=== PATIENT | male | born 1950 | race Caucasian/White ===

== ENCOUNTER 2020-12-18 10:31 | Outpatient (CLI) | payer OTHER ==
[2020-12-18 17:49] LABS: SARS-CoV-2 PCR by NAA Not Detected (NotDetected)
== END 2020-12-18 10:32 | disposition home or self-care (01) ==
LOC: CSHLAB 10:31
PROVIDERS: ATTEND Internal Medicine Gastroenterology
DX: Z20.822 Contact with and (suspected) exposure to COVID-19 (principal); I85.00 Esophageal varices without bleeding; Z12.11 Encounter for screening for malignant neoplasm of colon
CPT/HCPCS: 87635; U0003; U0005

== ENCOUNTER 2020-12-23 06:30 | Day surgery (SDC) | payer OTHER ==
[2020-12-21 14:55] VITALS: BMI 27.3
[2020-12-23] MEDS ORDERED: cefTRIAXone\\ROCEPHIN 1 GM VIAL ONE (08:03)
[2020-12-23] MEDS ORDERED: Sodium Chloride 0.9% 100 ML ONE ×2 (08:03→08:05)
[2020-12-23] MEDS ORDERED: Metoprolol Tartrate 5 MG/5 ML VIAL ONE (08:47)
[2020-12-23] MEDS ORDERED: Ketamine 50 MG/ML (10ML VIAL) ONE (09:06)
[2020-12-23] MEDS ORDERED: PROPOFOL 60 ML ONE (09:09)
[2020-12-23] MEDS ORDERED: PHENYLEPHRINE-NS 100 MCG/ML 10 ML SYRINGE ONE (09:26)
[2020-12-23] MEDS ORDERED: PROPOFOL 20 ML ONE (09:48)
[2020-12-23] MEDS ORDERED: Lidocaine 1% PF 5 ML VIAL ONE (10:14)
== END 2020-12-23 11:05 | disposition home or self-care (01) ==
LOC: CSHSDC 06:30
PROVIDERS: ATTEND Internal Medicine Gastroenterology
DX: Z12.11 Encounter for screening for malignant neoplasm of colon (principal); I85.00 Esophageal varices without bleeding; D12.5 Benign neoplasm of sigmoid colon; K29.30 Chronic superficial gastritis without bleeding; K44.9 Diaphragmatic hernia without obstruction or gangrene; K76.6 Portal hypertension; K31.89 Other diseases of stomach and duodenum; K26.9 Duodenal ulcer, unspecified as acute or chronic, without hemorrhage or perforation; K64.9 Unspecified hemorrhoids; K57.30 Diverticulosis of large intestine without perforation or abscess without bleeding; K70.30 Alcoholic cirrhosis of liver without ascites; I10 Essential (primary) hypertension; E78.5 Hyperlipidemia, unspecified; I48.91 Unspecified atrial fibrillation
CPT/HCPCS: 88305; J0696; J2704; J3490

== ENCOUNTER 2021-07-15 12:09 | Day surgery (SDC) | payer OTHER ==
[2021-07-15 12:38] VITALS: BP 117/73; TEMP 97.8
[2021-07-15] MEDS ORDERED: Sodium Bicarbonate 2.5 MEQ/5 ML VIAL ONE (12:45)
[2021-07-15] MEDS ORDERED: Lidocaine 1% PF 5 ML VIAL ONE (12:57)
== END 2021-07-15 13:30 | disposition home or self-care (01) ==
LOC: CSHULT 12:09
PROVIDERS: ATTEND Internal Medicine Gastroenterology
DX: R18.8 Other ascites (principal)
CPT/HCPCS: 49083

== ENCOUNTER 2021-08-11 10:16 | Day surgery (SDC) | payer OTHER ==
[2021-08-11] MEDS ORDERED: Lidocaine 1% PF 5 ML VIAL ONE ×2 (10:37→11:38)
[2021-08-11] MEDS ORDERED: Albumin 25% 100 ML ONE (10:37)
[2021-08-11] MEDS ORDERED: Sodium Bicarbonate 2.5 MEQ/5 ML VIAL ONE (10:38)
[2021-08-11 11:14] LABS: INR-International Normal Ratio 1.4; PTT 28.1 sec (22.0-33.0); Prothrombin Time 15.4 sec (9.5-12.1)
== END 2021-08-11 12:35 | disposition home or self-care (01) ==
LOC: CSHULT 10:16
PROVIDERS: ATTEND Internal Medicine Gastroenterology
DX: K70.31 Alcoholic cirrhosis of liver with ascites (principal)
CPT/HCPCS: 49083; 85610; 85730; P9047

== ENCOUNTER 2021-09-15 10:34 | Day surgery (SDC) | payer OTHER ==
[2021-09-15 11:55] LABS: #Eosinphils 0.2 10x3/uL (0.0-0.5); #Neutrophils 4.1 10x3/uL (1.5-8.4); %Basophils 0.6 % (0.0-2.0); %Eosinophils 2.5 % (0.0-6.0); %Lymphocytes 22.1 % (18.0-47.0); %Monocytes 14.4 % (0.0-10.0); %Neutrophils 60.1 % (40.0-75.0); Hemoglobin 13.3 g/dL (13.5-17.5); Mean Corpuscular Hemoglobin 34.2 pg (27.0-33.0); Mean Corpuscular Volume 100.5 fl (81.2-95.1); Mean Platelet Volume 10.8 fl (7.4-10.4); Platelet Count 232 10x3/uL (150-450); RBC Distribution Width 13.2 % (11.5-14.5); Red Blood Cell (RBC) Count 3.89 10x6/uL (4.32-5.72); White Blood Cell (WBC) Count 6.8 10x3/uL (3.5-10.5)
[2021-09-15 11:59] VITALS: BP 137/63; TEMP 97.9
[2021-09-15 12:01] LABS: INR-International Normal Ratio 1.3; PTT 27.7 sec (22.0-33.0)
[2021-09-15] MEDS ORDERED: Albumin 25% 100 ML ONE (12:04)
[2021-09-15] MEDS ORDERED: Lidocaine 1% PF 5 ML VIAL ONE (12:04)
[2021-09-15] MEDS ORDERED: Sodium Bicarbonate 2.5 MEQ/5 ML VIAL ONE (12:05)
[2021-09-15] MEDS ORDERED: FLU VACC QS2021-22(65YR UP)/PF 240 MCG/0.7 ML SYRINGE IM ONE (12:15)
== END 2021-09-15 13:35 | disposition home or self-care (01) ==
LOC: CSHULT 10:34
PROVIDERS: ATTEND Internal Medicine Gastroenterology
DX: R18.8 Other ascites (principal)
CPT/HCPCS: 49083; 85025; 85610; 85730; P9047

== ENCOUNTER 2021-10-06 09:02 | Day surgery (SDC) | payer OTHER ==
[2021-10-06] MEDS ORDERED: Albumin 25% 100 ML ONE (09:50)
[2021-10-06] MEDS ORDERED: Sodium Bicarbonate 2.5 MEQ/5 ML VIAL ONE (09:51)
[2021-10-06] MEDS ORDERED: Lidocaine 1% PF 5 ML VIAL ONE (09:51)
[2021-10-06 09:58] LABS: Hemoglobin 12.8 g/dL (13.5-17.5); Mean Corpuscular HGB CONC 33.6 g/dL (32.0-36.0); Mean Corpuscular Hemoglobin 33.2 pg (27.0-33.0); Mean Corpuscular Volume 98.7 fl (81.2-95.1); Mean Platelet Volume 11.1 fl (7.4-10.4); Platelet Count 197 10x3/uL (150-450); RBC Distribution Width 14.1 % (11.5-14.5); Red Blood Cell (RBC) Count 3.86 10x6/uL (4.32-5.72); White Blood Cell (WBC) Count 6.2 10x3/uL (3.5-10.5)
[2021-10-06 09:59] LABS: MDiff Complete? YES
[2021-10-06 10:13] VITALS: BP 98/59; TEMP 98.2
[2021-10-06 10:18] LABS: Band 2 % (5-11); Eosinophils 10 % (0-10); Lymphocytes 18 % (21-51); Monocytes 9 % (0-10); Neutrophil 61 % (42-75)
[2021-10-06 10:20] LABS: Platelet Morphology Comment Appears Adequate
[2021-10-06 10:21] LABS: RBC Morphology Normal
[2021-10-06 11:12] LABS: INR-International Normal Ratio 1.3; PTT 29.1 sec (22.0-33.0); Prothrombin Time 13.9 sec (9.5-12.1)
== END 2021-10-06 11:05 | disposition home or self-care (01) ==
LOC: CSHULT 09:02
PROVIDERS: ATTEND Internal Medicine Gastroenterology
DX: R18.8 Other ascites (principal)
CPT/HCPCS: 49083; 85025; 85610; 85730; P9047

== ENCOUNTER 2021-10-26 11:56 | Day surgery (SDC) | payer OTHER ==
[2021-10-26] MEDS ORDERED: Albumin 25% 100 ML ONE (12:14)
[2021-10-26] MEDS ORDERED: Lidocaine 1% PF 5 ML VIAL ONE (12:15)
[2021-10-26] MEDS ORDERED: Sodium Bicarbonate 2.5 MEQ/5 ML VIAL ONE (12:15)
[2021-10-26 13:02] VITALS: BP 117/69; TEMP 98
== END 2021-10-26 14:20 | disposition home or self-care (01) ==
LOC: CSHULT 11:56
PROVIDERS: ATTEND Internal Medicine Gastroenterology
DX: R18.8 Other ascites (principal)
CPT/HCPCS: 49083; P9047

== ENCOUNTER 2021-11-03 09:06 | Outpatient (CLI) | payer OTHER ==
[2021-11-03 10:23] LABS: Estimated GFR-MDRD - POC Greater than 90
== END 2021-11-03 09:07 | disposition home or self-care (01) ==
LOC: CSHCT 09:06
PROVIDERS: ATTEND Internal Medicine Gastroenterology
DX: R16.0 Hepatomegaly, not elsewhere classified (principal); K76.6 Portal hypertension; I86.4 Gastric varices; R18.8 Other ascites; I87.8 Other specified disorders of veins
CPT/HCPCS: 74160; 82565

== ENCOUNTER 2021-12-28 12:08 | Day surgery (SDC) | payer OTHER ==
[2021-12-28] MEDS ORDERED: Sodium Bicarbonate 2.5 MEQ/5 ML VIAL ONE (12:55)
[2021-12-28] MEDS ORDERED: Lidocaine 1% PF 5 ML VIAL ONE (12:55)
[2021-12-28] MEDS ORDERED: Albumin 25% 100 ML ONE (12:55)
[2021-12-28 13:15] LABS: #Eosinphils 0.1 10x3/uL (0.0-0.5); #Monocytes 0.8 10x3/uL (0.0-1.1); #Neutrophils 3.1 10x3/uL (1.5-8.4); %Basophils 0.6 % (0.0-2.0); %Eosinophils 2.7 % (0.0-6.0); %Lymphocytes 22.6 % (18.0-47.0); %Monocytes 14.2 % (0.0-10.0); %Neutrophils 59.5 % (40.0-75.0); Hemoglobin 13.2 g/dL (13.5-17.5); Mean Corpuscular HGB CONC 33.2 g/dL (32.0-36.0); Mean Corpuscular Hemoglobin 33.4 pg (27.0-33.0); Mean Corpuscular Volume 100.5 fl (81.2-95.1); Mean Platelet Volume 10.9 fl (7.4-10.4); Platelet Count 141 10x3/uL (150-450); RBC Distribution Width 13.5 % (11.5-14.5); Red Blood Cell (RBC) Count 3.95 10x6/uL (4.32-5.72); White Blood Cell (WBC) Count 5.3 10x3/uL (3.5-10.5)
[2021-12-28 13:18] LABS: INR-International Normal Ratio 1.3; PTT 29.2 sec (22.0-33.0); Prothrombin Time 13.8 sec (9.5-12.1)
[2021-12-28 14:55] VITALS: TEMP 98
== END 2021-12-28 14:00 | disposition home or self-care (01) ==
LOC: CSHULT 12:08
PROVIDERS: ATTEND Internal Medicine Gastroenterology
DX: R18.8 Other ascites (principal)
CPT/HCPCS: 49083; 85025; 85610; 85730; P9047

== ENCOUNTER 2022-01-21 10:02 | Day surgery (SDC) | payer OTHER ==
[2022-01-21] MEDS ORDERED: Lidocaine 1% PF 5 ML VIAL ONE (10:29)
[2022-01-21] MEDS ORDERED: Albumin 25% 100 ML ONE (10:29)
[2022-01-21] MEDS ORDERED: Sodium Bicarbonate 2.5 MEQ/5 ML VIAL ONE (10:29)
[2022-01-21 13:38] VITALS: TEMP 97.3
[2022-01-21 13:44] VITALS: BP 112/66
== END 2022-01-21 11:50 | disposition home or self-care (01) ==
LOC: CSHULT 10:02
PROVIDERS: ATTEND Internal Medicine Gastroenterology
DX: R18.8 Other ascites (principal); K74.60 Unspecified cirrhosis of liver
CPT/HCPCS: 49083; P9047

== ENCOUNTER → 2022-02-11 | Day surgery (SDC) | payer OTHER ==
[~2022-02-11] MED LIST: Albumin 25% 100 ML ONE; Lidocaine 1% PF 5 ML VIAL ONE; Sodium Bicarbonate 2.5 MEQ/5 ML VIAL ONE
[2022-02-11 11:45] VITALS: BP 112/59; TEMP 98.4
[2022-02-11 12:32] LABS: INR-International Normal Ratio 1.4; PTT 30.3 sec (22.0-33.0); Prothrombin Time 15.1 sec (9.5-12.1)
[2022-02-11 12:33] LABS: Anion Gap 15 mmol/L (10-20); BUN (Urea Nitrogen) 9 mg/dL (8.4-25.7); Calc. Creatinine Clearance 122 mL/min (70-130); Calcium 8.8 mg/dL (7.8-10.44); Carbon Dioxide 24 mmol/L (23-31); Chloride 97 mmol/L (98-107); Glucose 85 mg/dL (80-115); Potassium 3.3 mmol/L (3.5-5.1); Sodium 133 mmol/L (136-145)
[2022-02-11 12:52] LABS: #Eosinphils 0.1 10x3/uL (0.0-0.5); #Monocytes 0.9 10x3/uL (0.0-1.1); #Neutrophils 2.7 10x3/uL (1.5-8.4); %Basophils 0.6 % (0.0-2.0); %Eosinophils 2.9 % (0.0-6.0); %Lymphocytes 22.8 % (18.0-47.0); %Monocytes 17.8 % (0.0-10.0); %Neutrophils 55.7 % (40.0-75.0); Hemoglobin 13.5 g/dL (13.5-17.5); Mean Corpuscular HGB CONC 35.2 g/dL (32.0-36.0); Mean Corpuscular Hemoglobin 34.9 pg (27.0-33.0); Mean Corpuscular Volume 99.2 fl (81.2-95.1); Mean Platelet Volume 11.2 fl (7.4-10.4); Platelet Count 91 10x3/uL (150-450); Red Blood Cell (RBC) Count 3.87 10x6/uL (4.32-5.72); White Blood Cell (WBC) Count 4.8 10x3/uL (3.5-10.5)
[2022-02-11 13:59] LABS: Band 2 % (5-11); Lymphocytes 16 % (21-51)
[2022-02-11 14:00] LABS: Eosinophils 2 % (0-10); Monocytes 8 % (0-10)
[2022-02-11 14:01] LABS: Anisocytosis SLIGHT = 6-15 cells (100X) (0-5/hpf); Hypochromia SLIGHT = 6-15 cells (100X) (0-5/hpf); Neutrophil 72 % (42-75); Platelet Morphology Comment Appears Decreased; Polychromasia SLIGHT = 2-3 cells (100X) (0-2/hpf)
[2022-02-11 14:02] LABS: MDiff Complete? YES
== END ==
LOC: CSHULT 09:47
PROVIDERS: ATTEND Internal Medicine Gastroenterology
DX: R18.8 Other ascites (principal)
CPT/HCPCS: 49083; 80048; 85025; 85610; 85730; P9047

== ENCOUNTER 2022-03-04 09:57 | Day surgery (SDC) | payer OTHER ==
[2022-03-04] MEDS ORDERED: Albumin 25% 100 ML ONE (10:14)
[2022-03-04] MEDS ORDERED: Lidocaine 1% PF 5 ML VIAL ONE (10:14)
[2022-03-04] MEDS ORDERED: Sodium Bicarbonate 2.5 MEQ/5 ML VIAL ONE (10:14)
[2022-03-04 11:04] VITALS: BP 118/63; TEMP 98.2
== END 2022-03-04 11:35 | disposition home or self-care (01) ==
LOC: CSHULT 09:57
PROVIDERS: ATTEND Internal Medicine Gastroenterology
PROC: BW40ZZZ Ultrasonography of Abdomen (ICD-10-PCS; principal; 2022-03-04)
PROC: 0W9G3ZZ Drainage of Peritoneal Cavity, Percutaneous Approach (ICD-10-PCS; principal; 2022-03-04)
DX: R18.8 Other ascites (principal); Z88.6 Allergy status to analgesic agent
CPT/HCPCS: 49083; P9047

== ENCOUNTER 2022-03-25 10:10 | Day surgery (SDC) | payer OTHER ==
[2022-03-25] MEDS ORDERED: Albumin 25% 100 ML ONE (10:27)
[2022-03-25] MEDS ORDERED: Lidocaine 1% PF 5 ML VIAL ONE (10:28)
[2022-03-25] MEDS ORDERED: Sodium Bicarbonate 2.5 MEQ/5 ML VIAL ONE (10:28)
[2022-03-25 10:40] VITALS: BP 136/82; TEMP 98.2
[2022-03-25 10:46] LABS: Hemoglobin 14.1 g/dL (13.5-17.5); Mean Corpuscular HGB CONC 34.9 g/dL (32.0-36.0); Mean Corpuscular Hemoglobin 35.3 pg (27.0-33.0); Mean Platelet Volume 10.4 fl (7.4-10.4); Platelet Count 146 10x3/uL (150-450); RBC Distribution Width 14.4 % (11.5-14.5); White Blood Cell (WBC) Count 6.2 10x3/uL (3.5-10.5)
[2022-03-25 10:47] LABS: INR-International Normal Ratio 1.3; Prothrombin Time 13.9 sec (9.5-12.1)
== END 2022-03-25 11:48 | disposition home or self-care (01) ==
LOC: CSHULT 10:10
PROVIDERS: ATTEND Internal Medicine Gastroenterology
PROC: 0W9G3ZZ Drainage of Peritoneal Cavity, Percutaneous Approach (ICD-10-PCS; principal; 2022-03-25)
DX: R18.8 Other ascites (principal)
CPT/HCPCS: 49083; 85027; 85610; P9047

== ENCOUNTER → 2022-04-15 | Day surgery (SDC) | payer OTHER ==
[2022-04-15 11:23] VITALS: BP 106/63; TEMP 98.4
[2022-04-15 11:58] LABS: INR-International Normal Ratio 1.4; Prothrombin Time 14.9 sec (9.5-12.1)
[2022-04-15 11:59] LABS: Hemoglobin 14.3 g/dL (13.5-17.5); Mean Corpuscular HGB CONC 34.9 g/dL (32.0-36.0); Mean Corpuscular Hemoglobin 35.3 pg (27.0-33.0); Mean Corpuscular Volume 101.2 fl (81.2-95.1); RBC Distribution Width 14.6 % (11.5-14.5); Red Blood Cell (RBC) Count 4.05 10x6/uL (4.32-5.72)
[2022-04-15 12:00] LABS: Platelet Count 128 10x3/uL (150-450)
== END ==
LOC: CSHULT 10:19
PROVIDERS: ATTEND Internal Medicine Gastroenterology
PROC: 0W9G3ZZ Drainage of Peritoneal Cavity, Percutaneous Approach (ICD-10-PCS; principal; 2022-04-15)
DX: R18.8 Other ascites (principal)
CPT/HCPCS: 49083; 85027; 85610; P9047

== ENCOUNTER 2022-05-06 10:14 | Day surgery (SDC) | payer OTHER ==
[2022-04-29 12:11] VITALS: BMI 28.1
[2022-05-06] MEDS ORDERED: Sodium Bicarbonate 2.5 MEQ/5 ML VIAL ONE (10:36)
[2022-05-06] MEDS ORDERED: Albumin 25% 100 ML ONE (10:36)
[2022-05-06 12:53] VITALS: BP 120/73; TEMP 98.4
== END 2022-05-06 12:05 | disposition home or self-care (01) ==
LOC: CSHULT 10:14
PROVIDERS: ATTEND Internal Medicine Gastroenterology
PROC: 0W9G3ZZ Drainage of Peritoneal Cavity, Percutaneous Approach (ICD-10-PCS; principal; 2022-05-06)
DX: R18.8 Other ascites (principal); Z79.899 Other long term (current) drug therapy; Z88.8 Allergy status to other drugs, medicaments and biological substances
CPT/HCPCS: 49083; P9047

== ENCOUNTER 2022-06-10 09:38 | Day surgery (SDC) | payer OTHER ==
[2022-06-10] MEDS ORDERED: Albumin 25% 100 ML ONE (10:03)
[2022-06-10] MEDS ORDERED: Sodium Bicarbonate 2.5 MEQ/5 ML VIAL ONE (10:03)
[2022-06-10 10:19] VITALS: BP 104/68; TEMP 97.6
== END 2022-06-10 11:35 | disposition home or self-care (01) ==
LOC: CSHULT 09:38
PROVIDERS: ATTEND Internal Medicine Gastroenterology
PROC: 0W9G3ZZ Drainage of Peritoneal Cavity, Percutaneous Approach (ICD-10-PCS; principal; 2022-06-10)
DX: R18.8 Other ascites (principal)
CPT/HCPCS: 49083; C1760; P9047

== ENCOUNTER 2022-06-24 09:50 | Day surgery (SDC) | payer OTHER ==
[2022-06-24] MEDS ORDERED: Lidocaine 1% PF 5 ML VIAL ONE (10:15)
[2022-06-24] MEDS ORDERED: Sodium Bicarbonate 2.5 MEQ/5 ML VIAL ONE (10:15)
== END 2022-06-24 11:35 | disposition home or self-care (01) ==
LOC: CSHULT 09:50
PROVIDERS: ATTEND Internal Medicine Gastroenterology
PROC: 0W9G30Z Drainage of Peritoneal Cavity with Drainage Device, Percutaneous Approach (ICD-10-PCS; principal; 2022-06-24)
DX: R18.8 Other ascites (principal)
CPT/HCPCS: 49083

== ENCOUNTER 2022-07-08 09:39 | Day surgery (SDC) | payer OTHER ==
[2022-07-08] MEDS ORDERED: Albumin 25% 100 ML ONE (09:58)
[2022-07-08] MEDS ORDERED: Lidocaine 1% PF 5 ML VIAL ONE (09:59)
[2022-07-08] MEDS ORDERED: Sodium Bicarbonate 2.5 MEQ/5 ML VIAL ONE (09:59)
[2022-07-08 11:14] LABS: INR-International Normal Ratio 1.2; PTT 31.5 sec (22.0-33.0); Prothrombin Time 13.4 sec (9.5-12.1)
[2022-07-08 11:15] LABS: Hemoglobin 12.3 g/dL (13.5-17.5); Mean Corpuscular HGB CONC 35.7 g/dL (32.0-36.0); Mean Corpuscular Hemoglobin 34.9 pg (27.0-33.0); Mean Platelet Volume 9.4 fl (7.4-10.4); Platelet Count 189 10x3/uL (150-450); RBC Distribution Width 13.5 % (11.5-14.5); Red Blood Cell (RBC) Count 3.52 10x6/uL (4.32-5.72)
[2022-07-08 11:34] LABS: Band 1 % (5-11); Eosinophils 2 % (0-10); Lymphocytes 17 % (21-51); Monocytes 18 % (0-10); Neutrophil 61 % (42-75)
[2022-07-08 11:38] LABS: Platelet Morphology Comment Appears Adequate
[2022-07-08 11:39] LABS: MDiff Complete? YES; RBC Morphology Normal
[2022-07-08 12:47] VITALS: BP 104/69; TEMP 99.4; BMI 28.1
== END 2022-07-08 12:00 | disposition home or self-care (01) ==
LOC: CSHULT 09:39
PROVIDERS: ATTEND Internal Medicine Gastroenterology
PROC: 0W9G3ZZ Drainage of Peritoneal Cavity, Percutaneous Approach (ICD-10-PCS; principal; 2022-07-08)
DX: R18.8 Other ascites (principal); Z88.6 Allergy status to analgesic agent; R44.1 Visual hallucinations; R60.0 Localized edema; I10 Essential (primary) hypertension; K21.9 Gastro-esophageal reflux disease without esophagitis; Z79.899 Other long term (current) drug therapy
CPT/HCPCS: 49083; 80053; 80306; 80307; 82140; 83735; 85025; 85610; 85730; 99285; P9047; Q0162

== ENCOUNTER 2022-07-08 22:34 | Emergency (ER) | payer OTHER ==
[2022-07-09] MEDS ORDERED: Ondansetron ODT 4 MG TAB ONE (02:41)
[2022-07-09 02:52] LABS: Hemoglobin 11.8 g/dL (13.5-17.5); Mean Corpuscular Hemoglobin 34.8 pg (27.0-33.0); Mean Corpuscular Volume 99.4 fl (81.2-95.1); Mean Platelet Volume 9.4 fl (7.4-10.4); Platelet Count 138 10x3/uL (150-450); RBC Distribution Width 13.3 % (11.5-14.5); Red Blood Cell (RBC) Count 3.39 10x6/uL (4.32-5.72); White Blood Cell (WBC) Count 6.3 10x3/uL (3.5-10.5)
[2022-07-09 03:00] LABS: MDiff Complete? YES
[2022-07-09 03:05] LABS: ALT (SGPT) 18 U/L (8-55); AST (SGOT) 61 U/L (5-34); Acetaminophen Less than 10.0 mcg/mL (10.0-30.0); Albumin 2.8 g/dL (3.4-4.8); Alcohol Less than 10 mg/dL (Less than 10); Alkaline Phosphatase 80 U/L (40-110); Anion Gap 15 mmol/L (10-20); BUN (Urea Nitrogen) 11 mg/dL (8.4-25.7); Bilirubin, Total 3.4 mg/dL (0.2-1.2); Calc. Creatinine Clearance 0 mL/min (70-130); Calcium 8.9 mg/dL (7.8-10.44); Carbon Dioxide 26 mmol/L (23-31); Chloride 99 mmol/L (98-107); Estimated GFR 98; Glucose 89 mg/dL (80-115); Magnesium 1.7 mg/dL (1.6-2.6); Potassium 5.2 mmol/L (3.5-5.1); Protein, Total 6.8 g/dL (5.8-8.1); Salicylate Less than 8.0 mg/dL (15.0-30.0); Sodium 135 mmol/L (136-145)
[2022-07-09 03:27] LABS: Amphetamine Not Detected (NotDetected); Barbiturates Screen Not Detected (NotDetected); Benzodiazepine Screen Not Detected (NotDetected); Cocaine Metabolite Screen Not Detected (NotDetected); Methadone Not Detected (NotDetected); Methamphetamine Not Detected (NotDetected); Opiate Screen Not Detected (NotDetected); Oxycodone Screen Not Detected (NotDetected); Phencyclidine (PCP) Not Detected (NotDetected); THC/Cannabinoid Screen Not Detected (NotDetected); Tricyclic Screen Not Detected (NotDetected)
[2022-07-09 03:40] LABS: Eosinophils 2 % (0-10); Neutrophil 60 % (42-75)
[2022-07-09 03:41] LABS: Lymphocytes 16 % (21-51); Monocytes 22 % (0-10); Platelet Morphology Comment Appears Decreased; RBC Morphology Normal
== END 2022-07-09 06:40 | disposition home or self-care (01) ==
LOC: CSHERS 22:34
DX: R44.1 Visual hallucinations (principal); R60.0 Localized edema; I10 Essential (primary) hypertension; K21.9 Gastro-esophageal reflux disease without esophagitis; Z79.899 Other long term (current) drug therapy
CPT/HCPCS: 80053; 80306; 80307; 82140; 83735; 85025; Q0162

== ENCOUNTER 2022-07-09 13:37 | Inpatient (IN) | payer OTHER ==
[2022-07-09] MEDS ORDERED: Senokot S 8.6-50 MG TAB PO PRN (18:33)
[2022-07-09] MEDS ORDERED: Ondansetron ODT 4 MG TAB PO PRN (18:33)
[2022-07-09] MEDS ORDERED: Ondansetron PF 4 MG/2 ML Vial IVP PRN (18:33)
[2022-07-09] MEDS ORDERED: Calcium Carbonate 500 MG ChewTAB PO PRN (18:33)
[2022-07-09] MEDS ORDERED: Metoprolol Tartrate 5 MG/5 ML VIAL IVP SCH (23:00)
[2022-07-09 23:18] LABS: Anion Gap 14 mmol/L (10-20); BUN (Urea Nitrogen) 11 mg/dL (8.4-25.7); Calc. Creatinine Clearance 0 mL/min (70-130); Carbon Dioxide 23 mmol/L (23-31); Chloride 99 mmol/L (98-107); Estimated GFR 100; Glucose 84 mg/dL (80-115); Magnesium 1.6 mg/dL (1.6-2.6); Potassium 4.2 mmol/L (3.5-5.1); Sodium 132 mmol/L (136-145)
[2022-07-10] MEDS ORDERED: chlordiazePOXIDE HCl 5 MG CAP PO SCH (00:30)
[2022-07-10] MEDS: Albumin 25% 25 GM/100 ML BOT IVPB SCH ×2 (01:16→05:30)
[2022-07-10 01:18] LABS: Bilirubin Neg (Negative); Blood, Urine 10 (Negative); Clarity Clear (Clear); Glucose, Urine (Dipstick) Normal (Negative); Ketone, Urine 15 mg/dL (Negative); Leukocyte 25 (Negative); Nitrite Positive (Negative); Protein, Urine (Dipstick) 100 mg/dl (Neg-Trace); Specific Gravity, Urine 1.025 (1.005-1.030); Urobilinogen Normal mg/dL (Less than 2)
[2022-07-10 01:43] LABS: RBC/HPF 0-3 HPF (0-3)
[2022-07-10 01:44] LABS: Bacteria/HPF Rare-Few HPF (None Seen); Squamous Epithelial None Seen HPF (0-3)
[2022-07-10 02:48] VITALS: BMI 28.8
[2022-07-10] MEDS ORDERED: FLU VACC QS2022-23(65YR UP)/PF 240 MCG/0.7 ML SYRINGE IM ONE (03:30)
[2022-07-10] MEDS ORDERED: cefTRIAXone\\ROCEPHIN 1 GM in Sodium Chloride 0.9% 100 ML IVPB SCH ×2 (04:00→12:00)
[2022-07-10] MEDS: Magnesium 2 GM/50 ML(in water) 2 GM in Premix Bag 1 BAG IVPB SCH ×4 (04:27→16:54)
[2022-07-10 06:30] LABS: ALT (SGPT) 19 U/L (8-55); AST (SGOT) 59 U/L (5-34); Alkaline Phosphatase 71 U/L (40-110); Anion Gap 14 mmol/L (10-20); BUN (Urea Nitrogen) 11 mg/dL (8.4-25.7); Calc. Creatinine Clearance 125 mL/min (70-130); Calcium 8.9 mg/dL (7.8-10.44); Carbon Dioxide 23 mmol/L (23-31); Chloride 101 mmol/L (98-107); Estimated GFR 100; Globulin 3.7 g/dL (2.4-3.5); Glucose 71 mg/dL (80-115); Magnesium 1.5 mg/dL (1.6-2.6); Phosphorus 2.8 mg/dL (2.3-4.7); Potassium 4.2 mmol/L (3.5-5.1); Protein, Total 6.7 g/dL (5.8-8.1); Sodium 134 mmol/L (136-145)
[2022-07-10 07:24] LABS: Hemoglobin 11.3 g/dL (13.5-17.5); Mean Corpuscular HGB CONC 35.1 g/dL (32.0-36.0); Mean Corpuscular Hemoglobin 34.7 pg (27.0-33.0); Mean Corpuscular Volume 98.8 fl (81.2-95.1); Mean Platelet Volume 9.5 fl (7.4-10.4); Platelet Count 154 10x3/uL (150-450); RBC Distribution Width 13.5 % (11.5-14.5); Red Blood Cell (RBC) Count 3.26 10x6/uL (4.32-5.72); White Blood Cell (WBC) Count 6.5 10x3/uL (3.5-10.5)
[2022-07-10] MEDS ORDERED: Ziprasidone 20 MG VIAL IM SCH (08:45)
[2022-07-10] MEDS ORDERED: Sterile Water 10 ML VIAL FS SCH (08:45)
[2022-07-10] MEDS ORDERED: Metoprolol Tartrate 25 MG TAB PO SCH (09:00)
[2022-07-10] MEDS ORDERED: Thiamine 100 MG TAB PO SCH (09:00)
[2022-07-10] MEDS ORDERED: Lorazepam 2 MG/ML VIAL IM PRN (09:00)
[2022-07-10] MEDS ORDERED: Ondansetron ODT 4 MG TAB PO PRN (09:00)
[2022-07-10] MEDS ORDERED: Multivit, Therapeutic 1 TAB PO SCH (09:00)
[2022-07-10] MEDS ORDERED: Folic Acid 1 MG TAB PO SCH (09:00)
[2022-07-10] MEDS ORDERED: Electrolyte Replacement Protocol 1 EACH FS PRN (09:00)
[2022-07-10] MEDS ORDERED: Diltiazem 125 MG, Admixture Fee 1 EACH in Sodium Chloride 0.9% 100 ML IVPB SCH ×2 (09:30→23:00)
[2022-07-10 09:37] LABS: Band 5 % (5-11); Eosinophils 3 % (0-10); Lymphocytes 17 % (21-51); Reactive Lymphocytes 3 % (0-10)
[2022-07-10 09:38] LABS: Neutrophil 58 % (42-75)
[2022-07-10 09:39] LABS: Large Platelets SLIGHT; Monocytes 13 % (0-10)
[2022-07-10 09:40] LABS: MDiff Complete? YES; Platelet Clumps SLIGHT; Platelet Morphology Comment Appears Adequate
[2022-07-10 09:41] LABS: RBC Morphology Normal
[2022-07-10] MEDS: Multivit, Therapeutic 1 TAB PO SCH (09:55)
[2022-07-10] MEDS: Folic Acid 1 MG TAB PO SCH (09:58)
[2022-07-10] MEDS: Lorazepam 1 MG TAB PO PRN ×2 (10:04→17:25)
[2022-07-10] MEDS: Lorazepam 1 MG TAB PO SCH ×4 (11:05→21:52)
[2022-07-10] MEDS ORDERED: Albumin 25% 25 GM/100 ML BOT IVPB SCH (12:00)
[2022-07-10] MEDS: Thiamine HCl 200 MG/2 ML VIAL SLOW IVP SCH (12:22)
[2022-07-10 13:22] LABS: SARS-CoV-2 NAA Rapid Test Not Detected (NotDetected)
[2022-07-10] MEDS: chlordiazePOXIDE HCl 25 MG CAP PO SCH ×3 (14:37→21:52)
[2022-07-10] MEDS ORDERED: Magnesium 2 GM/50 ML(in water) 2 GM in Premix Bag 1 BAG IVPB SCH ×2 (15:45→23:30)
[2022-07-10] MEDS: Metoprolol Tartrate 25 MG TAB PO SCH ×2 (21:00→21:51)
[2022-07-10] MEDS: Enoxaparin Sodium 80 MG/0.8 ML SYRINGE SC SCH (21:53)
[2022-07-10] MEDS ORDERED: Digoxin 0.5 MG/2 ML AMP SLOW IVP SCH (22:00)
[2022-07-10 22:30] LABS: Hemoglobin 12.6 g/dL (13.5-17.5); Mean Corpuscular HGB CONC 34.7 g/dL (32.0-36.0); Mean Corpuscular Hemoglobin 35.1 pg (27.0-33.0); Mean Corpuscular Volume 101.1 fl (81.2-95.1); Mean Platelet Volume 9.2 fl (7.4-10.4); Platelet Count 148 10x3/uL (150-450); RBC Distribution Width 13.5 % (11.5-14.5); Red Blood Cell (RBC) Count 3.59 10x6/uL (4.32-5.72); White Blood Cell (WBC) Count 6.8 10x3/uL (3.5-10.5)
[2022-07-10] MEDS ORDERED: Metoprolol Tartrate 5 MG/5 ML VIAL IVP SCH (22:30)
[2022-07-10] MEDS ORDERED: Lorazepam 2 MG/ML VIAL SLOW IVP SCH (22:30)
[2022-07-10 22:31] LABS: MDiff Complete? YES; Platelet Morphology Comment Appears Decreased
[2022-07-10] MEDS ORDERED: Furosemide 100 MG/10 ML VIAL SLOW IVP SCH (22:45)
[2022-07-10] MEDS ORDERED: Piperacillin/Tazobactam 3.375 GM in Sodium Chloride 0.9% 100 ML IVPB SCH ×2 (22:45→23:00)
[2022-07-10] MEDS ORDERED: Furosemide 40 MG/4 ML VIAL SLOW IVP SCH (22:45)
[2022-07-10 22:57] LABS: Anion Gap 13 mmol/L (10-20); BUN (Urea Nitrogen) 10 mg/dL (8.4-25.7); CK (CPK) 149 U/L (30-200); Calc. Creatinine Clearance 121 mL/min (70-130); Calcium 9.2 mg/dL (7.8-10.44); Carbon Dioxide 24 mmol/L (23-31); Chloride 99 mmol/L (98-107); Estimated GFR 100; Glucose 119 mg/dL (80-115); Magnesium 1.9 mg/dL (1.6-2.6); Potassium 4.3 mmol/L (3.5-5.1); Sodium 132 mmol/L (136-145)
[2022-07-10] MEDS ORDERED: Magnesium Sulfate/D5W 1 GM/100 ML BAG IVPB SCH (23:45)
[2022-07-11 01:00] LABS: Phosphorus 3.4 mg/dL (2.3-4.7)
[2022-07-11] MEDS ORDERED: Digoxin 0.5 MG/2 ML AMP SLOW IVP SCH ×2 (01:15→08:00)
[2022-07-11 03:43] LABS: Hemoglobin 11.2 g/dL (13.5-17.5); Mean Corpuscular HGB CONC 34.9 g/dL (32.0-36.0); Mean Corpuscular Hemoglobin 35.3 pg (27.0-33.0); Mean Corpuscular Volume 101.3 fl (81.2-95.1); Mean Platelet Volume 9.2 fl (7.4-10.4); Platelet Count 145 10x3/uL (150-450); RBC Distribution Width 13.5 % (11.5-14.5); Red Blood Cell (RBC) Count 3.17 10x6/uL (4.32-5.72); White Blood Cell (WBC) Count 8.6 10x3/uL (3.5-10.5)
[2022-07-11 03:52] LABS: INR-International Normal Ratio 1.4; Prothrombin Time 14.6 sec (9.5-12.1)
[2022-07-11 03:59] LABS: ALT (SGPT) 19 U/L (8-55); AST (SGOT) 56 U/L (5-34); Albumin 3.1 g/dL (3.4-4.8); Alkaline Phosphatase 64 U/L (40-110); Anion Gap 13 mmol/L (10-20); BUN (Urea Nitrogen) 10 mg/dL (8.4-25.7); Bilirubin, Total 2.4 mg/dL (0.2-1.2); Calc. Creatinine Clearance 115 mL/min (70-130); Carbon Dioxide 27 mmol/L (23-31); Chloride 98 mmol/L (98-107); Estimated GFR 98; Globulin 3.5 g/dL (2.4-3.5); Glucose 116 mg/dL (80-115); Magnesium 2.2 mg/dL (1.6-2.6); Potassium 3.9 mmol/L (3.5-5.1); Protein, Total 6.6 g/dL (5.8-8.1); Sodium 134 mmol/L (136-145)
[2022-07-11] MEDS: Lorazepam 1 MG TAB PO SCH ×4 (04:31→20:59)
[2022-07-11 04:40] LABS: MDiff Complete? YES; Platelet Morphology Comment Appears Decreased
[2022-07-11 04:43] LABS: Eosinophils 1 % (0-10); Lymphocytes 16 % (21-51); Monocytes 18 % (0-10); Neutrophil 65 % (42-75)
[2022-07-11 04:46] LABS: Band 6 % (5-11); Eosinophils 3 % (0-10); Lymphocytes 17 % (21-51); Monocytes 16 % (0-10); Neutrophil 58 % (42-75)
[2022-07-11] MEDS: Piperacillin/Tazobactam 3.375 GM in Sodium Chloride 0.9% 100 ML IVPB SCH ×3 (05:13→20:58)
[2022-07-11] MEDS ORDERED: Amiodarone 450 MG in Dextrose 5% in Water 250 ML IVPB SCH (08:00)
[2022-07-11] MEDS ORDERED: Amiodarone In Dextrose 200 ML IVPB SCH (08:15)
[2022-07-11] MEDS: Albumin 25% 25 GM/100 ML BOT IVPB SCH ×3 (08:19→20:08)
[2022-07-11] MEDS ORDERED: Amiodarone In Dextrose 150 MG in Premix Bag 1 BAG IVPB SCH (08:30)
[2022-07-11] MEDS ORDERED: Diltiazem 125 MG in Sodium Chloride 0.9% 100 ML IVPB SCH (08:30)
[2022-07-11] MEDS: Enoxaparin Sodium 80 MG/0.8 ML SYRINGE SC SCH ×2 (08:30→20:58)
[2022-07-11] MEDS: Thiamine HCl 200 MG/2 ML VIAL SLOW IVP SCH (08:30)
[2022-07-11] MEDS: Folic Acid 1 MG TAB PO SCH (08:31)
[2022-07-11] MEDS: chlordiazePOXIDE HCl 25 MG CAP PO SCH ×2 (08:31→20:48)
[2022-07-11] MEDS: Metoprolol Tartrate 25 MG TAB PO SCH ×2 (08:32→20:59)
[2022-07-11] MEDS: Multivit, Therapeutic 1 TAB PO SCH (08:32)
[2022-07-11] MEDS ORDERED: Lorazepam 1 MG TAB PO PRN (09:00)
[2022-07-11] MEDS ORDERED: chlordiazePOXIDE HCl 5 MG CAP PO SCH (15:15)
[2022-07-11] MEDS ORDERED: Lorazepam 2 MG/ML VIAL SLOW IVP PRN (19:27)
[2022-07-11] MEDS ORDERED: Diltiazem 125 MG, Admixture Fee 1 EACH in Sodium Chloride 0.9% 100 ML IVPB SCH (20:00)
[2022-07-11] MEDS: chlordiazePOXIDE HCl 5 MG CAP PO SCH (20:59)
[2022-07-12] MEDS: Albumin 25% 25 GM/100 ML BOT IVPB SCH (02:21)
[2022-07-12] MEDS: Piperacillin/Tazobactam 3.375 GM in Sodium Chloride 0.9% 100 ML IVPB SCH ×3 (03:52→20:32)
[2022-07-12] MEDS: Lorazepam 1 MG TAB PO SCH (03:53)
[2022-07-12 03:55] LABS: Hemoglobin 10.7 g/dL (13.5-17.5); Mean Corpuscular HGB CONC 34.2 g/dL (32.0-36.0); Mean Corpuscular Hemoglobin 34.3 pg (27.0-33.0); Mean Corpuscular Volume 100.3 fl (81.2-95.1); Mean Platelet Volume 9.2 fl (7.4-10.4); Platelet Count 140 10x3/uL (150-450); RBC Distribution Width 13.7 % (11.5-14.5); Red Blood Cell (RBC) Count 3.12 10x6/uL (4.32-5.72); White Blood Cell (WBC) Count 8.5 10x3/uL (3.5-10.5)
[2022-07-12 04:10] LABS: Anion Gap 17 mmol/L (10-20); BUN (Urea Nitrogen) 8 mg/dL (8.4-25.7); Calc. Creatinine Clearance 113 mL/min (70-130); Calcium 9.2 mg/dL (7.8-10.44); Carbon Dioxide 26 mmol/L (23-31); Chloride 100 mmol/L (98-107); Estimated GFR 97; Glucose 99 mg/dL (80-115); Magnesium 1.5 mg/dL (1.6-2.6); Potassium 3.5 mmol/L (3.5-5.1); Sodium 139 mmol/L (136-145)
[2022-07-12 04:52] LABS: MDiff Complete? YES; Platelet Morphology Comment Appears Decreased
[2022-07-12 04:54] LABS: Eosinophils 4 % (0-10); Lymphocytes 9 % (21-51); Monocytes 14 % (0-10); Neutrophil 73 % (42-75)
[2022-07-12] MEDS ORDERED: Potassium Bicarbonate/Cit Ac 20 MEQ TAB PO SCH (05:00)
[2022-07-12] MEDS ORDERED: Potassium Chloride 20 MEQ TAB PO SCH (06:00)
[2022-07-12] MEDS ORDERED: Magnesium 2 GM/50 ML(in water) 2 GM in Premix Bag 1 BAG IVPB SCH (06:00)
[2022-07-12] MEDS ORDERED: Lorazepam 1 MG TAB PO PRN (09:00)
[2022-07-12] MEDS: Thiamine HCl 200 MG/2 ML VIAL SLOW IVP SCH (09:57)
[2022-07-12] MEDS: Lorazepam 0.5 MG TAB PO SCH ×3 (09:58→20:24)
[2022-07-12] MEDS: Enoxaparin Sodium 80 MG/0.8 ML SYRINGE SC SCH ×2 (09:58→20:32)
[2022-07-12] MEDS: chlordiazePOXIDE HCl 5 MG CAP PO SCH ×3 (09:58→20:24)
[2022-07-12] MEDS: Folic Acid 1 MG TAB PO SCH (09:58)
[2022-07-12] MEDS: Multivit, Therapeutic 1 TAB PO SCH (09:59)
[2022-07-12] MEDS: Metoprolol Tartrate 25 MG TAB PO SCH (09:59)
[2022-07-12] MEDS ORDERED: methylPREDNISolone Sod Succ 40 MG VIAL IVP SCH (11:00)
[2022-07-12] MEDS ORDERED: Furosemide 40 MG/4 ML VIAL SLOW IVP SCH (11:00)
[2022-07-12] MEDS ORDERED: Eucerin (Mineral Oil/Petrolatum,White) 30 gm Jar TOP PRN (11:06)
[2022-07-12] MEDS ORDERED: Diltiazem 125 MG, Admixture Fee 1 EACH in Sodium Chloride 0.9% 100 ML IVPB SCH (18:45)
[2022-07-12] MEDS: Metoprolol Tartrate 50 MG TAB PO SCH (20:25)
[2022-07-12] MEDS: methylPREDNISolone Sod Succ 40 MG VIAL IVP SCH (20:32)
[2022-07-13] MEDS: Lorazepam 0.5 MG TAB PO SCH (00:12)
[2022-07-13] MEDS: Piperacillin/Tazobactam 3.375 GM in Sodium Chloride 0.9% 100 ML IVPB SCH ×3 (04:00→21:14)
[2022-07-13] MEDS ORDERED: Lorazepam 0.5 MG TAB PO PRN (06:00)
[2022-07-13 06:17] LABS: ALT (SGPT) 14 U/L (8-55); AST (SGOT) 32 U/L (5-34); Albumin 3.7 g/dL (3.4-4.8); Alkaline Phosphatase 58 U/L (40-110); Anion Gap 17 mmol/L (10-20); BUN (Urea Nitrogen) 12 mg/dL (8.4-25.7); Bilirubin, Total 2.5 mg/dL (0.2-1.2); Calc. Creatinine Clearance 118 mL/min (70-130); Calcium 9.2 mg/dL (7.8-10.44); Carbon Dioxide 28 mmol/L (23-31); Chloride 100 mmol/L (98-107); Estimated GFR 99; Globulin 3.3 g/dL (2.4-3.5); Glucose 150 mg/dL (80-115); Magnesium 1.7 mg/dL (1.6-2.6); Potassium 3.3 mmol/L (3.5-5.1); Sodium 142 mmol/L (136-145)
[2022-07-13 07:01] LABS: Hemoglobin 11.8 g/dL (13.5-17.5); Mean Corpuscular HGB CONC 34.4 g/dL (32.0-36.0); Mean Corpuscular Hemoglobin 34.5 pg (27.0-33.0); Mean Corpuscular Volume 100.3 fl (81.2-95.1); Mean Platelet Volume 9.5 fl (7.4-10.4); Platelet Count 125 10x3/uL (150-450); RBC Distribution Width 13.8 % (11.5-14.5); Red Blood Cell (RBC) Count 3.42 10x6/uL (4.32-5.72); White Blood Cell (WBC) Count 5.2 10x3/uL (3.5-10.5)
[2022-07-13] MEDS ORDERED: Potassium Bicarbonate/Cit Ac 20 MEQ TAB PO SCH (08:00)
[2022-07-13] MEDS ORDERED: Magnesium 2 GM/50 ML(in water) 2 GM in Premix Bag 1 BAG IVPB SCH (08:00)
[2022-07-13 08:35] LABS: MDiff Complete? YES
[2022-07-13 08:38] LABS: Lymphocytes 6 % (21-51); Monocytes 2 % (0-10); Neutrophil 92 % (42-75)
[2022-07-13 08:42] LABS: Platelet Morphology Comment Appears Adequate
[2022-07-13 08:44] LABS: Macrocytosis SLIGHT = 6-15 cells (100X) (0-5/hpf)
[2022-07-13] MEDS: methylPREDNISolone Sod Succ 40 MG VIAL IVP SCH ×2 (08:54→21:17)
[2022-07-13] MEDS: Enoxaparin Sodium 80 MG/0.8 ML SYRINGE SC SCH ×2 (08:54→21:16)
[2022-07-13] MEDS: Potassium Chloride 20 MEQ in Premix Bag 1 BAG IVPB SCH ×2 (08:54→11:18)
[2022-07-13] MEDS: chlordiazePOXIDE HCl 5 MG CAP PO SCH ×3 (11:00→21:18)
[2022-07-13] MEDS: Multivit, Therapeutic 1 TAB PO SCH (11:04)
[2022-07-13] MEDS: Metoprolol Tartrate 50 MG TAB PO SCH ×2 (11:06→21:18)
[2022-07-13] MEDS: Folic Acid 1 MG TAB PO SCH (11:06)
[2022-07-13] MEDS: Thiamine 100 MG TAB PO SCH (11:07)
[2022-07-14] MEDS: Piperacillin/Tazobactam 3.375 GM in Sodium Chloride 0.9% 100 ML IVPB SCH ×3 (03:30→20:25)
[2022-07-14 04:34] LABS: Hemoglobin 13.9 g/dL (13.5-17.5); Mean Corpuscular HGB CONC 34.2 g/dL (32.0-36.0); Mean Corpuscular Hemoglobin 34.7 pg (27.0-33.0); Mean Corpuscular Volume 101.5 fl (81.2-95.1); Platelet Count 145 10x3/uL (150-450); RBC Distribution Width 13.9 % (11.5-14.5); Red Blood Cell (RBC) Count 4.01 10x6/uL (4.32-5.72); White Blood Cell (WBC) Count 13.2 10x3/uL (3.5-10.5)
[2022-07-14 04:38] LABS: ALT (SGPT) 19 U/L (8-55); Albumin 3.8 g/dL (3.4-4.8); Alkaline Phosphatase 62 U/L (40-110); Anion Gap 19 mmol/L (10-20); BUN (Urea Nitrogen) 18 mg/dL (8.4-25.7); Bilirubin, Total 2.4 mg/dL (0.2-1.2); Calc. Creatinine Clearance 121 mL/min (70-130); Calcium 9.7 mg/dL (7.8-10.44); Carbon Dioxide 27 mmol/L (23-31); Chloride 101 mmol/L (98-107); Estimated GFR 100; Globulin 4.4 g/dL (2.4-3.5); Glucose 109 mg/dL (80-115); Potassium 4.8 mmol/L (3.5-5.1); Protein, Total 8.2 g/dL (5.8-8.1); Sodium 142 mmol/L (136-145)
[2022-07-14 04:45] LABS: AST (SGOT) 45 U/L (5-34)
[2022-07-14] MEDS ORDERED: Magnesium 2 GM/50 ML(in water) 2 GM in Premix Bag 1 BAG IVPB SCH (05:00)
[2022-07-14 06:01] LABS: MDiff Complete? YES
[2022-07-14 06:21] LABS: Band 1 % (5-11); Lymphocytes 4 % (21-51); Monocytes 4 % (0-10); Neutrophil 91 % (42-75)
[2022-07-14 06:22] LABS: Diff Comment (RBC Morph SCRN) NORMAL; Platelet Morphology Comment Appears Decreased
[2022-07-14] MEDS: Enoxaparin Sodium 80 MG/0.8 ML SYRINGE SC SCH ×2 (08:19→20:25)
[2022-07-14] MEDS: methylPREDNISolone Sod Succ 40 MG VIAL IVP SCH (08:19)
[2022-07-14] MEDS: Folic Acid 1 MG TAB PO SCH (08:19)
[2022-07-14] MEDS: Metoprolol Tartrate 50 MG TAB PO SCH ×2 (08:20→20:26)
[2022-07-14] MEDS: Multivit, Therapeutic 1 TAB PO SCH (08:20)
[2022-07-14] MEDS: chlordiazePOXIDE HCl 5 MG CAP PO SCH ×3 (08:20→20:26)
[2022-07-14] MEDS: Thiamine 100 MG TAB PO SCH (08:20)
[2022-07-15] MEDS: Piperacillin/Tazobactam 3.375 GM in Sodium Chloride 0.9% 100 ML IVPB SCH ×3 (04:40→20:23)
[2022-07-15 07:17] LABS: #Monocytes 1.1 10x3/uL (0.0-1.1); #Neutrophils 6.8 10x3/uL (1.5-8.4); %Basophils 0.1 % (0.0-2.0); %Eosinophils 0.1 % (0.0-6.0); %Lymphocytes 9.5 % (18.0-47.0); %Monocytes 12.4 % (0.0-10.0); %Neutrophils 77.6 % (40.0-75.0); Mean Corpuscular HGB CONC 34.3 g/dL (32.0-36.0); Mean Corpuscular Hemoglobin 35.1 pg (27.0-33.0); Mean Corpuscular Volume 102.3 fl (81.2-95.1); Platelet Count 119 10x3/uL (150-450); RBC Distribution Width 14.4 % (11.5-14.5); Red Blood Cell (RBC) Count 3.42 10x6/uL (4.32-5.72); White Blood Cell (WBC) Count 8.7 10x3/uL (3.5-10.5)
[2022-07-15 07:21] LABS: ALT (SGPT) 23 U/L (8-55); AST (SGOT) 44 U/L (5-34); Albumin 3.2 g/dL (3.4-4.8); Alkaline Phosphatase 57 U/L (40-110); Anion Gap 14 mmol/L (10-20); BUN (Urea Nitrogen) 25 mg/dL (8.4-25.7); Bilirubin, Total 2.1 mg/dL (0.2-1.2); Calc. Creatinine Clearance 118 mL/min (70-130); Calcium 9.4 mg/dL (7.8-10.44); Carbon Dioxide 31 mmol/L (23-31); Chloride 104 mmol/L (98-107); Estimated GFR 99; Globulin 3.5 g/dL (2.4-3.5); Glucose 98 mg/dL (80-115); Potassium 3.6 mmol/L (3.5-5.1); Protein, Total 6.7 g/dL (5.8-8.1); Sodium 145 mmol/L (136-145)
[2022-07-15] MEDS: chlordiazePOXIDE HCl 5 MG CAP PO SCH ×3 (10:25→20:24)
[2022-07-15] MEDS: Folic Acid 1 MG TAB PO SCH (10:25)
[2022-07-15] MEDS: Thiamine 100 MG TAB PO SCH (10:25)
[2022-07-15] MEDS: Multivit, Therapeutic 1 TAB PO SCH (10:26)
[2022-07-15] MEDS: Enoxaparin Sodium 80 MG/0.8 ML SYRINGE SC SCH ×2 (10:26→20:23)
[2022-07-15] MEDS: Metoprolol Tartrate 50 MG TAB PO SCH ×2 (10:26→20:24)
[2022-07-16] MEDS: Piperacillin/Tazobactam 3.375 GM in Sodium Chloride 0.9% 100 ML IVPB SCH ×2 (04:11→13:49)
[2022-07-16 04:23] LABS: ALT (SGPT) 33 U/L (8-55); AST (SGOT) 58 U/L (5-34); Albumin 2.9 g/dL (3.4-4.8); Alkaline Phosphatase 56 U/L (40-110); Anion Gap 11 mmol/L (10-20); BUN (Urea Nitrogen) 23 mg/dL (8.4-25.7); Bilirubin, Total 1.8 mg/dL (0.2-1.2); Calc. Creatinine Clearance 125 mL/min (70-130); Calcium 9.1 mg/dL (7.8-10.44); Carbon Dioxide 30 mmol/L (23-31); Chloride 107 mmol/L (98-107); Estimated GFR 100; Globulin 3.2 g/dL (2.4-3.5); Glucose 105 mg/dL (80-115); Protein, Total 6.1 g/dL (5.8-8.1); Sodium 145 mmol/L (136-145)
[2022-07-16 04:28] LABS: Hemoglobin 11.4 g/dL (13.5-17.5); Mean Corpuscular HGB CONC 33.1 g/dL (32.0-36.0); Mean Corpuscular Hemoglobin 33.9 pg (27.0-33.0); Mean Corpuscular Volume 102.4 fl (81.2-95.1); Mean Platelet Volume 9.7 fl (7.4-10.4); Platelet Count 116 10x3/uL (150-450); RBC Distribution Width 14.3 % (11.5-14.5); Red Blood Cell (RBC) Count 3.36 10x6/uL (4.32-5.72); White Blood Cell (WBC) Count 6.2 10x3/uL (3.5-10.5)
[2022-07-16 05:30] LABS: MDiff Complete? YES
[2022-07-16 06:29] LABS: Band 1 % (5-11); Eosinophils 1 % (0-10); Lymphocytes 17 % (21-51); Monocytes 18 % (0-10); Neutrophil 63 % (42-75)
[2022-07-16 06:31] LABS: Diff Comment (RBC Morph SCRN) NORMAL; Platelet Morphology Comment Appears Decreased
[2022-07-16] MEDS ORDERED: Potassium Chloride 20 MEQ TAB PO SCH (08:00)
[2022-07-16] MEDS: Folic Acid 1 MG TAB PO SCH (09:16)
[2022-07-16] MEDS: Enoxaparin Sodium 80 MG/0.8 ML SYRINGE SC SCH (09:16)
[2022-07-16] MEDS: Multivit, Therapeutic 1 TAB PO SCH (09:17)
[2022-07-16] MEDS: Metoprolol Tartrate 50 MG TAB PO SCH ×2 (09:17→20:21)
[2022-07-16] MEDS: chlordiazePOXIDE HCl 5 MG CAP PO SCH ×3 (09:18→20:21)
[2022-07-16] MEDS: Thiamine 100 MG TAB PO SCH (09:18)
[2022-07-16] MEDS: Amoxicillin/Potassium Clav 875 MG TAB PO SCH (20:21)
[2022-07-17 04:26] LABS: ALT (SGPT) 33 U/L (8-55); AST (SGOT) 50 U/L (5-34); Albumin 2.8 g/dL (3.4-4.8); Alkaline Phosphatase 70 U/L (40-110); Anion Gap 13 mmol/L (10-20); BUN (Urea Nitrogen) 18 mg/dL (8.4-25.7); Bilirubin, Total 1.5 mg/dL (0.2-1.2); Calc. Creatinine Clearance 129 mL/min (70-130); Calcium 9.3 mg/dL (7.8-10.44); Carbon Dioxide 28 mmol/L (23-31); Chloride 108 mmol/L (98-107); Estimated GFR 101; Globulin 3.2 g/dL (2.4-3.5); Glucose 119 mg/dL (80-115); Magnesium 1.4 mg/dL (1.6-2.6); Potassium 3.3 mmol/L (3.5-5.1); Sodium 146 mmol/L (136-145)
[2022-07-17 04:30] LABS: #Eosinphils 0.3 10x3/uL (0.0-0.5); #Neutrophils 3.8 10x3/uL (1.5-8.4); %Basophils 0.2 % (0.0-2.0); %Eosinophils 4.5 % (0.0-6.0); %Lymphocytes 19.2 % (18.0-47.0); %Monocytes 16.2 % (0.0-10.0); %Neutrophils 59.4 % (40.0-75.0); Hemoglobin 11.6 g/dL (13.5-17.5); Mean Corpuscular HGB CONC 33.1 g/dL (32.0-36.0); Mean Corpuscular Hemoglobin 33.8 pg (27.0-33.0); Mean Platelet Volume 9.7 fl (7.4-10.4); Platelet Count 114 10x3/uL (150-450); RBC Distribution Width 14.3 % (11.5-14.5); Red Blood Cell (RBC) Count 3.43 10x6/uL (4.32-5.72); White Blood Cell (WBC) Count 6.4 10x3/uL (3.5-10.5)
[2022-07-17 06:12] LABS: Eosinophils 5 % (0-10); Lymphocytes 13 % (21-51); Monocytes 13 % (0-10); Reactive Lymphocytes 2 % (0-10)
[2022-07-17 06:18] LABS: Diff Comment (RBC Morph SCRN) NORMAL; Platelet Morphology Comment Appears Decreased
[2022-07-17 06:19] LABS: Neutrophil 67 % (42-75)
[2022-07-17] MEDS ORDERED: Potassium Chloride 20 MEQ TAB PO SCH (08:00)
[2022-07-17] MEDS: Magnesium 2 GM/50 ML(in water) 2 GM in Premix Bag 1 BAG IVPB SCH ×2 (09:05→11:30)
[2022-07-17] MEDS: chlordiazePOXIDE HCl 5 MG CAP PO SCH ×3 (09:09→19:53)
[2022-07-17] MEDS: Thiamine 100 MG TAB PO SCH (09:09)
[2022-07-17] MEDS: Metoprolol Tartrate 50 MG TAB PO SCH ×2 (09:09→19:53)
[2022-07-17] MEDS: Amoxicillin/Potassium Clav 875 MG TAB PO SCH ×2 (09:09→19:53)
[2022-07-17] MEDS: Multivit, Therapeutic 1 TAB PO SCH (09:09)
[2022-07-17] MEDS: Folic Acid 1 MG TAB PO SCH (09:10)
[2022-07-18 04:57] LABS: Anion Gap 11 mmol/L (10-20); BUN (Urea Nitrogen) 14 mg/dL (8.4-25.7); Calc. Creatinine Clearance 135 mL/min (70-130); Calcium 9.1 mg/dL (7.8-10.44); Carbon Dioxide 29 mmol/L (23-31); Chloride 109 mmol/L (98-107); Estimated GFR 103; Glucose 91 mg/dL (80-115); Magnesium 1.6 mg/dL (1.6-2.6); Potassium 3.6 mmol/L (3.5-5.1); Sodium 145 mmol/L (136-145)
[2022-07-18] MEDS ORDERED: Magnesium 2 GM/50 ML(in water) 2 GM in Premix Bag 1 BAG IVPB SCH (08:00)
[2022-07-18] MEDS: chlordiazePOXIDE HCl 5 MG CAP PO SCH ×3 (09:17→20:14)
[2022-07-18] MEDS: Amoxicillin/Potassium Clav 875 MG TAB PO SCH ×2 (09:17→20:12)
[2022-07-18] MEDS: Multivit, Therapeutic 1 TAB PO SCH (09:17)
[2022-07-18] MEDS: Folic Acid 1 MG TAB PO SCH (09:17)
[2022-07-18] MEDS: Thiamine 100 MG TAB PO SCH (09:17)
[2022-07-18] MEDS: Metoprolol Tartrate 50 MG TAB PO SCH ×2 (09:18→20:13)
[2022-07-18] MEDS ORDERED: Potassium Chloride 20 MEQ TAB PO SCH (10:30)
[2022-07-19 05:00] LABS: Magnesium 1.5 mg/dL (1.6-2.6); Potassium 3.7 mmol/L (3.5-5.1)
[2022-07-19] MEDS ORDERED: Magnesium 2 GM/50 ML(in water) 2 GM in Premix Bag 1 BAG IVPB SCH (08:00)
[2022-07-19] MEDS: Amoxicillin/Potassium Clav 875 MG TAB PO SCH (08:28)
[2022-07-19] MEDS: Folic Acid 1 MG TAB PO SCH (08:28)
[2022-07-19] MEDS: Thiamine 100 MG TAB PO SCH (08:29)
[2022-07-19] MEDS: Multivit, Therapeutic 1 TAB PO SCH (08:29)
[2022-07-19] MEDS: chlordiazePOXIDE HCl 5 MG CAP PO SCH ×2 (08:29→17:16)
[2022-07-19] MEDS ORDERED: Spironolactone 25 MG TAB PO SCH ×2 (09:00)
[2022-07-19] MEDS ORDERED: Metoprolol Tartrate 25 MG TAB PO SCH (09:00)
[2022-07-19] MEDS ORDERED: Furosemide 40 MG TAB PO SCH (09:00)
[2022-07-19] MEDS ORDERED: Furosemide 20 MG TAB PO SCH (09:00)
[2022-07-19] MEDS ORDERED: Magnesium Oxide 400 MG TAB PO SCH (16:00)
[2022-07-19] MEDS ORDERED: Potassium Chloride 20 MEQ TAB PO SCH (17:00)
[2022-07-19 21:00] VITALS: BP 123/72; TEMP 98.6
[2022-07-20] MEDS ORDERED: Magnesium Oxide 400 MG TAB PO SCH (09:00)
== END 2022-07-19 19:33 | DRG 896 ==
LOC: CSHERS 13:37 → CSHTELE 18:07 → OBSVTOIN 07-11 07:54 → CSHIMCU 07-11 13:54 → CSHTELE 07-14 16:24
PROVIDERS: ADMIT Internal Medicine; ATTEND Internal Medicine
PROC: 0W9G3ZZ Drainage of Peritoneal Cavity, Percutaneous Approach (ICD-10-PCS; 2022-07-08)
PROC: HZ2ZZZZ Detoxification Services for Substance Abuse Treatment (ICD-10-PCS; principal; 2022-07-11)
PROC: 0W9G3ZZ Drainage of Peritoneal Cavity, Percutaneous Approach (ICD-10-PCS; 2022-07-12)
DX: F10.231 Alcohol dependence with withdrawal delirium (principal); G93.41 Metabolic encephalopathy; I50.31 Acute diastolic (congestive) heart failure; E87.1 Hypo-osmolality and hyponatremia; Z20.822 Contact with and (suspected) exposure to COVID-19; K70.31 Alcoholic cirrhosis of liver with ascites; I48.91 Unspecified atrial fibrillation; R53.1 Weakness; R53.81 Other malaise; E87.5 Hyperkalemia; I95.9 Hypotension, unspecified; D69.6 Thrombocytopenia, unspecified; R13.10 Dysphagia, unspecified; I87.8 Other specified disorders of veins; Z88.6 Allergy status to analgesic agent; Z79.899 Other long term (current) drug therapy; R44.1 Visual hallucinations; I11.0 Hypertensive heart disease with heart failure; K21.9 Gastro-esophageal reflux disease without esophagitis
CPT/HCPCS: 36415; 36416; 49083; 71045; 80048; 80053; 80306; 80307; 81001; 82140; 82550; 83735; 83880; 84100; 84132; 84443; 84484; 85025; 85610; 85730; 87086; 87811; 93005; 93010; 93306; 93970; 94640; 94760; 96372; 96374; 96375; 96376; 97139; 99285; G0378; J0696; J1160; J1650; J1940; J2060; J2543; J2920; J3411; J3475; J3480; J3486; J3490; J7620; P9047; Q0162; U0002

== ENCOUNTER → 2022-07-22 | Day surgery (SDC) | payer OTHER ==
[~2022-07-22] MED LIST changes: +FLU VACC QS2022-23(65YR UP)/PF 240 MCG/0.7 ML SYRINGE IM ONE
[2022-07-22 10:51] VITALS: BP 88/55; TEMP 98
== END ==
LOC: CSHULT 09:32
PROVIDERS: ATTEND Internal Medicine Gastroenterology
PROC: 0W9G3ZX Drainage of Peritoneal Cavity, Percutaneous Approach, Diagnostic (ICD-10-PCS; principal; 2022-07-22)
DX: R18.8 Other ascites (principal); Z88.6 Allergy status to analgesic agent
CPT/HCPCS: 49083; P9047

== ENCOUNTER 2022-09-01 10:02 | Day surgery (SDC) | payer OTHER ==
[2022-09-01] MEDS ORDERED: Albumin 25% 100 ML ONE (10:23)
[2022-09-01] MEDS ORDERED: Lidocaine 1% PF 5 ML VIAL ONE (10:23)
[2022-09-01] MEDS ORDERED: Sodium Bicarbonate 2.5 MEQ/5 ML VIAL ONE (10:24)
[2022-09-01 10:42] VITALS: BP 120/78; TEMP 98
== END 2022-09-01 11:50 | disposition home or self-care (01) ==
LOC: CSHULT 10:02
PROVIDERS: ATTEND Internal Medicine Gastroenterology
PROC: 0W9G30Z Drainage of Peritoneal Cavity with Drainage Device, Percutaneous Approach (ICD-10-PCS; principal; 2022-09-01)
DX: R18.8 Other ascites (principal)
CPT/HCPCS: 49083; P9047

== ENCOUNTER 2022-10-16 04:38 | Inpatient (IN) | payer MEDICARE, OTHER ==
[2022-10-16] MEDS ORDERED: Amiodarone 150 MG/3 ML VIAL ONE (05:28)
[2022-10-16] MEDS ORDERED: Amiodarone In Dextrose 200 ML ONE ×2 (05:28→10:56)
[2022-10-16 05:36] LABS: Actual Bicarbonate (HCO3v) 24 mEq/L (22-28); Base Excess -0.7 mEq/L (-2 - +2); Calcium, Ionized (venous) 1.02 mmol/L (1.16-1.32); Chloride (VBG) 92 mmol/L (98-106); Potassium (VBG) 4.39 mmol/L (3.70-5.30); Puncture Site Other Site; RapidComm Collect By ABD; Sodium 125.2 mmol/L (133-146); pH (venous) 7.38 (7.32-7.43)
[2022-10-16 05:43] LABS: INR-International Normal Ratio 1.4; PTT 24.6 sec (22.0-33.0); Prothrombin Time 14.6 sec (9.5-12.1)
[2022-10-16 05:45] LABS: ALT (SGPT) 29 U/L (8-55); AST (SGOT) 119 U/L (5-34); Albumin 2.8 g/dL (3.4-4.8); Alkaline Phosphatase 176 U/L (40-110); Anion Gap 18 mmol/L (10-20); BUN (Urea Nitrogen) 11 mg/dL (8.4-25.7); Bilirubin, Total 2.1 mg/dL (0.2-1.2); CK (CPK) 464 U/L (30-200); Calc. Creatinine Clearance 0 mL/min (70-130); Calcium 8.1 mg/dL (7.8-10.44); Carbon Dioxide 23 mmol/L (23-31); Chloride 90 mmol/L (98-107); Estimated GFR 102; Globulin 4.9 g/dL (2.4-3.5); Glucose 97 mg/dL (83-110); Lipase 69 U/L (8-78); Magnesium 1.7 mg/dL (1.6-2.6); Potassium 4.1 mmol/L (3.5-5.1); Protein, Total 7.7 g/dL (5.8-8.1); Sodium 127 mmol/L (136-145)
[2022-10-16 05:56] LABS: #Eosinphils 0.1 10x3/uL (0.0-0.5); #Monocytes 1.2 10x3/uL (0.0-1.1); #Neutrophils 6.2 10x3/uL (1.5-8.4); %Basophils 0.4 % (0.0-2.0); %Monocytes 14.9 % (0.0-10.0); %Neutrophils 75.5 % (40.0-75.0); Hemoglobin 11.6 g/dL (13.5-17.5); Mean Corpuscular HGB CONC 35.8 g/dL (32.0-36.0); Mean Corpuscular Hemoglobin 31.4 pg (27.0-33.0); Mean Corpuscular Volume 87.6 fl (81.2-95.1); Mean Platelet Volume 10.5 fl (7.4-10.4); Platelet Count 121 10x3/uL (150-450); RBC Distribution Width 17.9 % (11.5-14.5); White Blood Cell (WBC) Count 8.1 10x3/uL (3.5-10.5)
[2022-10-16 05:57] LABS: Platelet Morphology Comment Appears Decreased; RBC Morphology Normal
[2022-10-16 06:16] LABS: SARS-CoV-2 NAA Rapid Test Not Detected (NotDetected)
[2022-10-16] MEDS ORDERED: Furosemide 40 MG/4 ML VIAL ONE (06:46)
[2022-10-16] MEDS ORDERED: Lorazepam 2 MG/ML VIAL IM PRN (08:47)
[2022-10-16] MEDS ORDERED: Lorazepam 1 MG TAB PO PRN (08:47)
[2022-10-16] MEDS ORDERED: Albumin 25% 25 GM/100 ML BOT IVPB SCH (09:00)
[2022-10-16] MEDS ORDERED: Amiodarone 450 MG in Dextrose 5% in Water 250 ML IVPB SCH (09:00)
[2022-10-16] MEDS ORDERED: Electrolyte Replacement Protocol 1 EACH FS SCH (09:00)
[2022-10-16 09:54] LABS: Phosphorus 2.4 mg/dL (2.3-4.7)
[2022-10-16] MEDS ORDERED: Amiodarone 450 MG, Admixture Fee 1 EACH in Dextrose 5% in Water 250 ML IVPB SCH (10:00)
[2022-10-16] MEDS ORDERED: Iopamidol 370 76% 100 ML VIAL ONE (10:26)
[2022-10-16 10:35] LABS: Troponin I Less than 0.010 ng/mL (< 0.028)
[2022-10-16] MEDS ORDERED: chlordiazePOXIDE HCl 5 MG CAP ONE (10:45)
[2022-10-16] MEDS ORDERED: Folic Acid 1 MG TAB ONE (10:47)
[2022-10-16] MEDS ORDERED: Metoprolol Tartrate 25 MG TAB ONE (10:53)
[2022-10-16] MEDS ORDERED: Thiamine 100 MG TAB ONE (11:05)
[2022-10-16] MEDS ORDERED: Ondansetron PF 4 MG/2 ML Vial IVP PRN (11:25)
[2022-10-16] MEDS ORDERED: Magnesium 2 GM/50 ML(in water) 2 GM in Premix Bag 1 BAG IVPB SCH ×2 (11:45→12:00)
[2022-10-16] MEDS ORDERED: Ondansetron PF 4 MG/2 ML Vial ONE (11:46)
[2022-10-16] MEDS: Magnesium Oxide 400 MG TAB PO SCH (12:00)
[2022-10-16] MEDS: Folic Acid 1 MG TAB PO SCH (12:00)
[2022-10-16] MEDS: Thiamine 100 MG TAB PO SCH (12:00)
[2022-10-16] MEDS: Spironolactone 25 MG TAB PO SCH (12:00)
[2022-10-16] MEDS: Multivit, Therapeutic 1 TAB PO SCH (12:00)
[2022-10-16] MEDS: chlordiazePOXIDE HCl 5 MG CAP PO SCH ×3 (12:00→20:35)
[2022-10-16] MEDS: Metoprolol Tartrate 25 MG TAB PO SCH ×2 (12:00→20:35)
[2022-10-16] MEDS ORDERED: Pantoprazole 40 MG VIAL IVP SCH (12:30)
[2022-10-16] MEDS: Diltiazem 125 MG in Sodium Chloride 0.9% 100 ML IVPB SCH (12:30)
[2022-10-16] MEDS ORDERED: Promethazine HCl 12.5 MG in Sodium Chloride 0.9% 50 ML IVPB SCH (13:00)
[2022-10-16] MEDS ORDERED: Pantoprazole 40 MG VIAL ONE (13:18)
[2022-10-16] MEDS ORDERED: Magnesium 2 GM/50 ML BAG (IN WATER) ONE (14:06)
[2022-10-16] MEDS: cefTRIAXone\\ROCEPHIN 1 GM in Sodium Chloride 0.9% 100 ML IVPB SCH (17:43)
[2022-10-16 19:05] VITALS: BMI 32.0
[2022-10-16] MEDS ORDERED: Furosemide 40 MG/4 ML VIAL SLOW IVP SCH (20:15)
[2022-10-16] MEDS ORDERED: Digoxin 0.5 MG/2 ML AMP SLOW IVP SCH (20:30)
[2022-10-17] MEDS ORDERED: Digoxin 0.5 MG/2 ML AMP SLOW IVP SCH (04:45)
[2022-10-17 05:06] LABS: Hemoglobin 10.5 g/dL (13.5-17.5); Mean Corpuscular HGB CONC 35.1 g/dL (32.0-36.0); Mean Corpuscular Hemoglobin 30.9 pg (27.0-33.0); Mean Corpuscular Volume 87.9 fl (81.2-95.1); Mean Platelet Volume 10.1 fl (7.4-10.4); Platelet Count 121 10x3/uL (150-450); RBC Distribution Width 18.5 % (11.5-14.5); White Blood Cell (WBC) Count 9.3 10x3/uL (3.5-10.5)
[2022-10-17 05:12] LABS: ALT (SGPT) 23 U/L (8-55); AST (SGOT) 87 U/L (5-34); Albumin 2.3 g/dL (3.4-4.8); Alkaline Phosphatase 137 U/L (40-110); Anion Gap 17 mmol/L (10-20); BUN (Urea Nitrogen) 11 mg/dL (8.4-25.7); Bilirubin, Total 1.8 mg/dL (0.2-1.2); Calc. Creatinine Clearance 148 mL/min (70-130); Carbon Dioxide 25 mmol/L (23-31); Chloride 92 mmol/L (98-107); Estimated GFR 102; Globulin 4.2 g/dL (2.4-3.5); Glucose 75 mg/dL (83-110); Magnesium 1.5 mg/dL (1.6-2.6); Phosphorus 2.7 mg/dL (2.3-4.7); Potassium 3.7 mmol/L (3.5-5.1); Protein, Total 6.5 g/dL (5.8-8.1); Sodium 130 mmol/L (136-145)
[2022-10-17] MEDS ORDERED: Magnesium 2 GM/50 ML(in water) 2 GM in Premix Bag 1 BAG IVPB SCH (06:00)
[2022-10-17 06:21] LABS: MDiff Complete? YES
[2022-10-17 06:31] LABS: Band 2 % (5-11); Eosinophils 3 % (0-10); Lymphocytes 7 % (21-51); Monocytes 18 % (0-10); Neutrophil 70 % (42-75)
[2022-10-17 06:33] LABS: Platelet Morphology Comment Appears Decreased; RBC Morphology Normal
[2022-10-17] MEDS ORDERED: Lidocaine 1% PF 5 ML VIAL ONE (08:27)
[2022-10-17] MEDS ORDERED: Sodium Bicarbonate 2.5 MEQ/5 ML VIAL ONE (08:27)
[2022-10-17] MEDS ORDERED: Lorazepam 1 MG TAB PO PRN (08:47)
[2022-10-17] MEDS ORDERED: Furosemide 20 MG TAB PO SCH (09:00)
[2022-10-17] MEDS: Ipratropium/Albuterol 3 ML NEB NEB PRN ×3 (10:20→20:28)
[2022-10-17] MEDS: Metoprolol Tartrate 25 MG TAB PO SCH ×2 (11:39→20:33)
[2022-10-17] MEDS: Multivit, Therapeutic 1 TAB PO SCH (11:39)
[2022-10-17] MEDS: chlordiazePOXIDE HCl 5 MG CAP PO SCH ×3 (11:39→20:33)
[2022-10-17] MEDS: Pantoprazole 40 MG VIAL IVP SCH (11:40)
[2022-10-17] MEDS: Folic Acid 1 MG TAB PO SCH (11:40)
[2022-10-17] MEDS: Magnesium Oxide 400 MG TAB PO SCH (11:47)
[2022-10-17] MEDS: Spironolactone 25 MG TAB PO SCH (11:48)
[2022-10-17] MEDS: Thiamine 100 MG TAB PO SCH (11:49)
[2022-10-17 12:23] LABS: BF Color Yellow; Body Fluid Source Paracentesis Fluid; Clarity Cloudy/Turbid (Clear); Tube # EDTA
[2022-10-17 13:45] LABS: BF Segmented Neutrophils 4 %; Cell Count Non Hematic 9 %; Lymphocytes 87 %
[2022-10-17] MEDS: Diltiazem 125 MG in Sodium Chloride 0.9% 100 ML IVPB SCH (15:14)
[2022-10-17] MEDS: Albumin 25% 25 GM/100 ML BOT IVPB SCH ×2 (15:14→16:58)
[2022-10-17] MEDS: Digoxin 0.5 MG/2 ML AMP SLOW IVP SCH (16:59)
[2022-10-17] MEDS ORDERED: Furosemide 40 MG/4 ML VIAL SLOW IVP SCH (18:30)
[2022-10-17] MEDS: cefTRIAXone\\ROCEPHIN 1 GM in Sodium Chloride 0.9% 100 ML IVPB SCH (18:59)
[2022-10-18] MEDS: Albumin 25% 25 GM/100 ML BOT IVPB SCH ×2 (00:11→05:25)
[2022-10-18 04:46] LABS: ALT (SGPT) 19 U/L (8-55); AST (SGOT) 69 U/L (5-34); Albumin 3.1 g/dL (3.4-4.8); Alkaline Phosphatase 119 U/L (40-110); Anion Gap 14 mmol/L (10-20); BUN (Urea Nitrogen) 13 mg/dL (8.4-25.7); Bilirubin, Total 1.8 mg/dL (0.2-1.2); Calc. Creatinine Clearance 105 mL/min (70-130); Calcium 8.5 mg/dL (7.8-10.44); Carbon Dioxide 30 mmol/L (23-31); Chloride 91 mmol/L (98-107); Estimated GFR 92; Globulin 3.7 g/dL (2.4-3.5); Glucose 164 mg/dL (83-110); Magnesium 1.7 mg/dL (1.6-2.6); Potassium 3.3 mmol/L (3.5-5.1); Protein, Total 6.8 g/dL (5.8-8.1); Sodium 132 mmol/L (136-145)
[2022-10-18 04:53] LABS: Hemoglobin 10.4 g/dL (13.5-17.5); Mean Corpuscular HGB CONC 34.4 g/dL (32.0-36.0); Mean Corpuscular Volume 90.1 fl (81.2-95.1); Mean Platelet Volume 10.3 fl (7.4-10.4); Platelet Count 113 10x3/uL (150-450); RBC Distribution Width 18.6 % (11.5-14.5); Red Blood Cell (RBC) Count 3.35 10x6/uL (4.32-5.72)
[2022-10-18] MEDS ORDERED: Potassium Chloride 20 MEQ TAB PO SCH (06:00)
[2022-10-18] MEDS ORDERED: Magnesium 2 GM/50 ML(in water) 2 GM in Premix Bag 1 BAG IVPB SCH (06:00)
[2022-10-18 06:03] LABS: MDiff Complete? YES
[2022-10-18 06:24] LABS: Band 5 % (5-11); Eosinophils 7 % (0-10); Lymphocytes 8 % (21-51); Monocytes 19 % (0-10); Neutrophil 61 % (42-75)
[2022-10-18 06:26] LABS: Platelet Morphology Comment Appears Decreased; RBC Morphology Normal
[2022-10-18] MEDS ORDERED: Potassium Chloride 10 MEQ TAB PO SCH (08:00)
[2022-10-18] MEDS ORDERED: Lorazepam 1 MG TAB PO PRN (08:47)
[2022-10-18] MEDS: Pantoprazole 40 MG VIAL IVP SCH (10:11)
[2022-10-18] MEDS: chlordiazePOXIDE HCl 5 MG CAP PO SCH ×2 (10:14→20:19)
[2022-10-18] MEDS: Folic Acid 1 MG TAB PO SCH (10:14)
[2022-10-18] MEDS: Furosemide 40 MG/4 ML VIAL SLOW IVP SCH (10:14)
[2022-10-18] MEDS: Thiamine 100 MG TAB PO SCH (10:14)
[2022-10-18] MEDS: Multivit, Therapeutic 1 TAB PO SCH (10:15)
[2022-10-18] MEDS: Metoprolol Tartrate 25 MG TAB PO SCH ×2 (10:15→20:19)
[2022-10-18] MEDS: Digoxin 0.5 MG/2 ML AMP SLOW IVP SCH (10:16)
[2022-10-18] MEDS: Spironolactone 25 MG TAB PO SCH (10:21)
[2022-10-18] MEDS: Magnesium Oxide 400 MG TAB PO SCH ×2 (11:50→20:19)
[2022-10-18] MEDS: Ipratropium/Albuterol 3 ML NEB NEB PRN (21:27)
[2022-10-18 23:25] LABS: ALV-art Gradient 170.975 mmHg (0-20); Actual Bicarbonate (HCO3a) 35.2 mEq/L (22-28); Base Excess (BEa) 5.6 mEq/L (-2.0 to +3.0); CO2 Tension 82.5 mmHg (35.0-45.0); Calcium, Ionized (arterial) 1.14 mmol/L (1.12-1.30); Carboxyhemoglobin (COHb) 0.3 gm% (0.0-3.0); Critical Notified By: Udy, RRT; Hemoglobin (Hb) 11.6 g/dL (14.0-18.0); O2 Tension (PaO2), arterial 82.4 mmHg (> 70.0); Potassium - ABG Lab 3.7 mmol/L (3.70-5.30); Puncture Site RBA; pH, Arterial 7.25 (7.35-7.45)
[2022-10-19 06:23] LABS: #Eosinphils 0.7 10x3/uL (0.0-0.5); #Monocytes 1.4 10x3/uL (0.0-1.1); #Neutrophils 4.1 10x3/uL (1.5-8.4); %Basophils 0.4 % (0.0-2.0); %Eosinophils 9.6 % (0.0-6.0); %Lymphocytes 7.9 % (18.0-47.0); %Monocytes 20.5 % (0.0-10.0); %Neutrophils 61.2 % (40.0-75.0); Hemoglobin 10.4 g/dL (13.5-17.5); Mean Corpuscular HGB CONC 33.3 g/dL (32.0-36.0); Mean Corpuscular Hemoglobin 31.2 pg (27.0-33.0); Mean Corpuscular Volume 93.7 fl (81.2-95.1); Mean Platelet Volume 10.7 fl (7.4-10.4); Platelet Count 94 10x3/uL (150-450); RBC Distribution Width 18.5 % (11.5-14.5); Red Blood Cell (RBC) Count 3.33 10x6/uL (4.32-5.72); White Blood Cell (WBC) Count 6.7 10x3/uL (3.5-10.5)
[2022-10-19 06:44] LABS: ALT (SGPT) 22 U/L (8-55); AST (SGOT) 63 U/L (5-34); Albumin 2.8 g/dL (3.4-4.8); Alkaline Phosphatase 117 U/L (40-110); Anion Gap 12 mmol/L (10-20); BUN (Urea Nitrogen) 12 mg/dL (8.4-25.7); Bilirubin, Total 1.9 mg/dL (0.2-1.2); Calc. Creatinine Clearance 133 mL/min (70-130); Calcium 8.8 mg/dL (7.8-10.44); Carbon Dioxide 33 mmol/L (23-31); Chloride 93 mmol/L (98-107); Estimated GFR 99; Globulin 3.5 g/dL (2.4-3.5); Glucose 99 mg/dL (83-110); Magnesium 1.6 mg/dL (1.6-2.6); Potassium 3.6 mmol/L (3.5-5.1); Protein, Total 6.3 g/dL (5.8-8.1); Sodium 134 mmol/L (136-145)
[2022-10-19 08:18] LABS: Hemoglobin 10.9 g/dL (13.5-17.5); Mean Corpuscular HGB CONC 33.9 g/dL (32.0-36.0); Mean Corpuscular Hemoglobin 31.4 pg (27.0-33.0); Mean Corpuscular Volume 92.8 fl (81.2-95.1); Mean Platelet Volume 10.8 fl (7.4-10.4); Platelet Count 93 10x3/uL (150-450); RBC Distribution Width 18.5 % (11.5-14.5); Red Blood Cell (RBC) Count 3.47 10x6/uL (4.32-5.72); White Blood Cell (WBC) Count 7.2 10x3/uL (3.5-10.5)
[2022-10-19 08:21] LABS: Anion Gap 11 mmol/L (10-20); BUN (Urea Nitrogen) 12 mg/dL (8.4-25.7); Calc. Creatinine Clearance 139 mL/min (70-130); Calcium 8.6 mg/dL (7.8-10.44); Carbon Dioxide 33 mmol/L (23-31); Chloride 92 mmol/L (98-107); Estimated GFR 100; Glucose 94 mg/dL (83-110); Potassium 3.9 mmol/L (3.5-5.1); Sodium 132 mmol/L (136-145)
[2022-10-19] MEDS: Magnesium 2 GM/50 ML(in water) 2 GM in Premix Bag 1 BAG IVPB SCH ×2 (08:47→13:20)
[2022-10-19 08:50] LABS: MDiff Complete? YES
[2022-10-19 08:54] LABS: Eosinophils 7 % (0-10); Lymphocytes 8 % (21-51); Monocytes 18 % (0-10); Neutrophil 67 % (42-75)
[2022-10-19 08:56] LABS: Anisocytosis SLIGHT = 6-15 cells (100X) (0-5/hpf); Platelet Morphology Comment Appears Decreased
[2022-10-19] MEDS: Potassium Chloride 20 MEQ TAB PO SCH (10:24)
[2022-10-19] MEDS: chlordiazePOXIDE HCl 5 MG CAP PO SCH ×2 (10:24→20:50)
[2022-10-19] MEDS: Folic Acid 1 MG TAB PO SCH (10:25)
[2022-10-19] MEDS: Multivit, Therapeutic 1 TAB PO SCH (10:26)
[2022-10-19] MEDS: Magnesium Oxide 400 MG TAB PO SCH ×2 (10:26→20:50)
[2022-10-19] MEDS: Metoprolol Tartrate 25 MG TAB PO SCH ×2 (10:27→20:51)
[2022-10-19] MEDS: Thiamine 100 MG TAB PO SCH (10:27)
[2022-10-19] MEDS ORDERED: Spironolactone 25 MG TAB PO SCH (12:00)
[2022-10-19] MEDS: Furosemide 40 MG/4 ML VIAL SLOW IVP SCH (13:06)
[2022-10-19] MEDS: Digoxin 0.5 MG/2 ML AMP SLOW IVP SCH (13:09)
[2022-10-19] MEDS: Albumin 25% 25 GM/100 ML BOT IVPB SCH ×3 (13:23→23:35)
[2022-10-19] MEDS: Spironolactone 25 MG TAB PO SCH (14:41)
[2022-10-19] MEDS: Lorazepam 2 MG/ML VIAL SLOW IVP PRN (18:04)
[2022-10-20 04:15] LABS: Magnesium 1.6 mg/dL (1.6-2.6)
[2022-10-20] MEDS: Albumin 25% 25 GM/100 ML BOT IVPB SCH (05:27)
[2022-10-20] MEDS ORDERED: Magnesium 2 GM/50 ML(in water) 2 GM in Premix Bag 1 BAG IVPB SCH (08:00)
[2022-10-20] MEDS: Furosemide 40 MG/4 ML VIAL SLOW IVP SCH (10:01)
[2022-10-20] MEDS: Folic Acid 1 MG TAB PO SCH (10:12)
[2022-10-20] MEDS: chlordiazePOXIDE HCl 5 MG CAP PO SCH ×2 (10:12→22:05)
[2022-10-20] MEDS: Metoprolol Tartrate 25 MG TAB PO SCH ×2 (10:12→22:05)
[2022-10-20] MEDS: Spironolactone 25 MG TAB PO SCH (10:13)
[2022-10-20] MEDS: Thiamine 100 MG TAB PO SCH (10:13)
[2022-10-20] MEDS: Multivit, Therapeutic 1 TAB PO SCH (10:13)
[2022-10-20] MEDS: Potassium Chloride 20 MEQ TAB PO SCH (10:13)
[2022-10-20] MEDS: Magnesium Oxide 400 MG TAB PO SCH ×2 (10:14→22:06)
[2022-10-20] MEDS: Digoxin 0.5 MG/2 ML AMP SLOW IVP SCH (10:16)
[2022-10-21] MEDS: Lorazepam 2 MG/ML VIAL SLOW IVP PRN (02:51)
[2022-10-21] MEDS: Furosemide 40 MG/4 ML VIAL SLOW IVP SCH (10:20)
[2022-10-21] MEDS: Digoxin 0.5 MG/2 ML AMP SLOW IVP SCH (10:26)
[2022-10-21 12:07] VITALS: TEMP 97.9
[2022-10-21 12:12] VITALS: BP 115/77
[2022-10-21] MEDS: Spironolactone 25 MG TAB PO SCH (12:21)
[2022-10-21] MEDS: Folic Acid 1 MG TAB PO SCH (12:21)
[2022-10-21] MEDS: Potassium Chloride 20 MEQ TAB PO SCH (12:21)
[2022-10-21] MEDS: Multivit, Therapeutic 1 TAB PO SCH (12:22)
[2022-10-21] MEDS: Magnesium Oxide 400 MG TAB PO SCH (12:22)
[2022-10-21] MEDS: Thiamine 100 MG TAB PO SCH (12:22)
[2022-10-21] MEDS: Metoprolol Tartrate 25 MG TAB PO SCH (12:22)
== END 2022-10-21 17:51 | disposition short-term general hospital (02) | DRG 432 ==
LOC: CSHERS 04:38 → SUATTDRO 04:38 → CSHERHOLD 07:47 → CSHTELE 15:58
PROVIDERS: ADMIT Internal Medicine; ATTEND Internal Medicine
PROC: 0W9G3ZZ Drainage of Peritoneal Cavity, Percutaneous Approach (ICD-10-PCS; principal; 2022-10-17)
PROC: 30233J1 Transfusion of Nonautologous Serum Albumin into Peripheral Vein, Percutaneous Approach (ICD-10-PCS; 2022-10-17)
PROC: 5A09457 Assistance with Respiratory Ventilation, 24-96 Consecutive Hours, Continuous Positive Airway Pressure (ICD-10-PCS; 2022-10-18)
DX: K70.31 Alcoholic cirrhosis of liver with ascites (principal); G93.41 Metabolic encephalopathy; J96.01 Acute respiratory failure with hypoxia; J96.02 Acute respiratory failure with hypercapnia; D68.9 Coagulation defect, unspecified; K76.6 Portal hypertension; E87.1 Hypo-osmolality and hyponatremia; I48.20 Chronic atrial fibrillation, unspecified; I50.20 Unspecified systolic (congestive) heart failure; E44.0 Moderate protein-calorie malnutrition; K21.9 Gastro-esophageal reflux disease without esophagitis; F41.9 Anxiety disorder, unspecified; F32.A Depression, unspecified; Z20.822 Contact with and (suspected) exposure to COVID-19; D69.6 Thrombocytopenia, unspecified; E88.09 Other disorders of plasma-protein metabolism, not elsewhere classified; T79.6XXA Traumatic ischemia of muscle, initial encounter; W19.XXXA Unspecified fall, initial encounter; R13.10 Dysphagia, unspecified; F10.20 Alcohol dependence, uncomplicated; I11.0 Hypertensive heart disease with heart failure; Z66 Do not resuscitate; Z88.8 Allergy status to other drugs, medicaments and biological substances; Z90.49 Acquired absence of other specified parts of digestive tract; Z79.899 Other long term (current) drug therapy; Y92.003 Bedroom of unspecified non-institutional (private) residence as the place of occurrence of the external cause; Z87.891 Personal history of nicotine dependence; Z68.32 Body mass index [BMI] 32.0-32.9, adult
CPT/HCPCS: 36415; 36600; 49083; 70450; 71045; 71275; 72125; 76705; 80053; 82105; 82140; 82550; 82805; 83690; 83735; 83880; 84100; 84484; 85025; 85379; 85610; 85730; 87070; 87205; 89051; 93005; 93010; 93306; 94640; 94660; 94760; 96374; 96375; 96376; 97139; C9113; J0282; J0283; J0696; J1160; J1940; J2060; J2405; J2550; J3475; J3490; J7620; P9047; Q9967

== ENCOUNTER 2022-10-21 17:57 | Inpatient (IN) | payer OTHER ==
[2022-10-21] MEDS ORDERED: Scopolamine 1.5 mg/72 hour Patch TOP PRN (18:19)
[2022-10-21] MEDS ORDERED: Morphine 2 MG/ML VIAL SLOW IVP PRN (18:19)
[2022-10-21] MEDS ORDERED: Lorazepam 2 MG/ML VIAL SLOW IVP PRN (18:20)
[2022-10-21] MEDS ORDERED: Ondansetron PF 4 MG/2 ML Vial IVP PRN (18:20)
[2022-10-21 18:21] VITALS: BMI 32.1
[2022-10-21] MEDS ORDERED: Bisacodyl 10 MG SUPP PR PRN (18:21)
[2022-10-21] MEDS: Morphine 2 MG/ML VIAL SLOW IVP SCH (20:46)
[2022-10-22] MEDS: Morphine 2 MG/ML VIAL SLOW IVP SCH ×4 (01:34→15:18)
[2022-10-22 08:06] VITALS: BP 83/44
== END 2022-10-22 20:30 | disposition expired | DRG 951 ==
LOC: CSHTELE 17:57
PROVIDERS: ADMIT Family Medicine; ATTEND Family Medicine
DX: Z51.5 Encounter for palliative care (principal); J96.01 Acute respiratory failure with hypoxia; K76.6 Portal hypertension; E87.1 Hypo-osmolality and hyponatremia; K70.31 Alcoholic cirrhosis of liver with ascites; I48.91 Unspecified atrial fibrillation; K21.9 Gastro-esophageal reflux disease without esophagitis; F41.9 Anxiety disorder, unspecified; F32.A Depression, unspecified; D64.9 Anemia, unspecified; D69.6 Thrombocytopenia, unspecified; E88.09 Other disorders of plasma-protein metabolism, not elsewhere classified; R79.89 Other specified abnormal findings of blood chemistry; S81.801A Unspecified open wound, right lower leg, initial encounter; F10.10 Alcohol abuse, uncomplicated; T79.6XXA Traumatic ischemia of muscle, initial encounter; Z98.890 Other specified postprocedural states; Z79.899 Other long term (current) drug therapy; Z90.49 Acquired absence of other specified parts of digestive tract; Z82.49 Family history of ischemic heart disease and other diseases of the circulatory system; Z88.8 Allergy status to other drugs, medicaments and biological substances
CPT/HCPCS: J2272